=== PATIENT | male | born 1955 | race Caucasian/White ===

== ENCOUNTER 2022-06-06 07:23 | Day surgery (SDC) | payer MEDICARE, OTHER ==
[2022-06-06] MEDS ORDERED: Midazolam 1 MG/ML 2 ML SDV ONE (07:48)
[2022-06-06] MEDS ORDERED: Propofol 200 MG/20 ML SDV ONE (07:48)
[2022-06-06] MEDS ORDERED: fentaNYL 50 MCG/ML SDV ONE (07:49)
[2022-06-06] MEDS ORDERED: Sodium Chloride 0.9% 1,000 ML IV SCH (08:00)
[2022-06-06 10:21] VITALS: BP 106/72; PULSE 60
== END 2022-06-06 10:30 | disposition home or self-care (01) ==
LOC: JP.SDS 07:23
PROVIDERS: ATTEND Surgery
DX: Z12.11 Encounter for screening for malignant neoplasm of colon (principal); D12.4 Benign neoplasm of descending colon; D12.5 Benign neoplasm of sigmoid colon; D12.3 Benign neoplasm of transverse colon; K57.30 Diverticulosis of large intestine without perforation or abscess without bleeding; E78.00 Pure hypercholesterolemia, unspecified; Z88.8 Allergy status to other drugs, medicaments and biological substances; Z86.010 Personal history of colon polyps; Z79.899 Other long term (current) drug therapy
CPT/HCPCS: 45380; 45385; 88305; J2250; J2704; J3010; J7030

== ENCOUNTER → 2023-07-31 | Day surgery (SDC) | payer OTHER ==
[~2023-07-31] MED LIST: Midazolam 1 MG/ML 2 ML SDV ONE; Propofol 200 MG/20 ML SDV ONE; fentaNYL 50 MCG/ML SDV ONE
[2023-07-31] MEDS: Sodium Chloride 0.9% 1,000 ML IV SCH (07:00)
[2023-07-31 09:01] VITALS: BP 110/79; PULSE 65
== END ==
LOC: JP.SDS 06:41
PROVIDERS: ATTEND Surgery
DX: Z12.11 Encounter for screening for malignant neoplasm of colon (principal); K57.30 Diverticulosis of large intestine without perforation or abscess without bleeding; E78.5 Hyperlipidemia, unspecified; Z88.8 Allergy status to other drugs, medicaments and biological substances
CPT/HCPCS: 45378; J2250; J2704; J3010; J7030